=== PATIENT | male | born 1970 | race Caucasian/White ===

== ENCOUNTER → 2018-11-24 | Outpatient (CLI) | payer OTHER ==
[~2018-11-24] VITALS: Ht 175.3 cm; Wt 81.2 kg
[~2018-11-24] MED LIST: ALBUTEROL2.5 MG/31 INH; ALDACTONE50 MG PO; COZAAR 50 MG TA50 MG PO; K-DUR 20 MEQ T20 MEQ PO
[2018-11-24 13:35] VITALS: BP 119/62
--- NOTE | 2018-11-24 17:01 | NUR ---
PT HOME WITH FRIEND POST UNSUCCESSFUL ADELSO CATH INSERTION. SL DC'D. SITE NO REDDESS. NO EDEMA. VSS. UP WITH STEADY GAIT. EMOTIONAL SUPPORT GIVEN.
== END | disposition home or self-care (01) ==
LOC: SPEC 07:06
DX: Z45.2 Encounter for adjustment and management of vascular access device (principal); I82.211 Chronic embolism and thrombosis of superior vena cava; Z53.8 Procedure and treatment not carried out for other reasons; Z98.890 Other specified postprocedural states; Z83.3 Family history of diabetes mellitus; Z79.899 Other long term (current) drug therapy